=== PATIENT | female | born 1970 | race Caucasian/White ===

== ENCOUNTER 2018-06-24 19:16 | Observation (INO) | payer BC, SELFPAY ==
[2018-06-24] VITALS (10 sets, daily range): BP systolic 114–158; BP diastolic 67–91; PULSE 70–87; RESP 16–20; TEMP 36.6; O2SAT 95–98; BMI 37.0; BMI 37.7
--- NOTE | 2018-06-24 19:52 | ED.RN ---
RN CALLED FOR EKG, NO OLD EKGS IN MUSE
--- NOTE | 2018-06-24 19:55 | RAD_ITS ---
STUDY: X-RAY CHEST REASON FOR EXAM: Female, 48 years old. Chest pain. TECHNIQUE: PA and lateral views of the chest. COMPARISON: 08 February 2017 FINDINGS: The lungs are clear and expanded. There is no demonstrated pleural abnormality. Normal size heart. Normal mediastinum and juan. Normal visualized pulmonary arteries. Normal visualized aortic arch and descending thoracic aorta. Normal visualized thoracic spine. Normal visualized ribs, clavicles, and shoulders. There is no demonstrated abnormality of the visualized soft tissue structures of the upper abdomen. RAD/Chest PA and Lateral IMPRESSION: No evidence of acute cardiopulmonary process. Electronically Signed: Tyrell Crump DO at 20:08 EST , Service support ,
[2018-06-24 20:08] LABS: Absolute Neutrophil Count 9.2 X10^3/uL (2.0-7.7); Basophil# 0.03 X10^3/uL; Basophil% 0.2 % (0-1); Eosinophil# 0.27 X10^3/uL; Eosinophils% 2.1 % (0-5); Hematocrit 43.4 % (37-47); Hemoglobin 14.4 g/dl (12.0-15.0); Lymphocyte % 18.7 % (19-41); Mean Corp Hgb Conc 33.2 g/gl (32-36); Mean Corpuscular Hgb 30.4 pg (27.0-32.0); Mean Corpuscular Volume 91.6 fL (81-99); Mean Platelet Vol. 10.2 fl (6.2-12.0); Monocyte# 0.89 X10^3/uL; Monocyte% 6.9 % (0-10); Neutrophil # 9.21 X10^3/uL (2.7-7.7); Neutrophil % 71.9 % (47-70); Platelet Count 244 K/mm3 (150-450); RBC Distribution Width CV 13.5 % (11.6-14.6); RBC Distribution Width SD 45.1 fl (35.1-43.9); Red Blood Count 4.74 M/mm3 (4.2-5.4); White Blood Count 12.8 K/mm3 (4.4-11.0)
[2018-06-24 20:09] LABS: POSITIVE COUNT NO; POSITIVE DIFFERENTIAL NO; POSITIVE MORPHOLOGY NO
[2018-06-24 20:23] LABS: Anion Gap 8 (5-15); BUN 8 mg/dL (7-18); BUN/Creat Ratio 8.7 RATIO (10-20); Calcium,Total 8.9 mg/dL (8.5-10.1); Chloride 104 mmol/L (98-107); Creatinine, Serum 0.92 mg/dL (0.55-1.02); EST Glomerular Filtration Rate 69 mL/min (>60); Est Glom Filt Rate - Afr Amer 84 mL/min (>60); Estimated Creatinine Clearance 61.86 ml/min; Glucose 105 mg/dL (74-106); Potassium 3.6 mmol/L (3.5-5.1); Sodium Level 138 mmol/L (136-145)
--- NOTE | 2018-06-24 21:05 | EKG12_ITS ---
Test Reason : CP Blood Pressure : / mmHG Vent. Rate : 087 BPM Atrial Rate : 087 BPM P-R Int : 140 ms QRS Dur : 078 ms QT Int : 352 ms P-R-T Axes : 065 053 064 degrees QTc Int : 423 ms Normal sinus rhythm Low voltage QRS Borderline ECG Confirmed by YANCY ESTRADA MD ([id number]), metropolitan editor ALEC MALIK ([id number] on 06/28/2018 11:37:26 AM Referred By: AMY Confirmed By:YANCY ESTRADA MD
[2018-06-24] MEDS: Aspirin 81 MG TAB.CHEW 324 MG PO (21:32)
--- NOTE | 2018-06-24 22:21 | ED.VISSUMM ---
- ER Visit Summary Date of Service: 06/24/18 Chief Complaint: Chest pain History of Present Illness: The patient is a 48 F persistent chest pressure since last evening 7 PM states elephant sitting on her chest. States pain goes to her back. Dull ache with intermittent sharpness. Nausea. No dyspnea or diaphoresis. No stress test in the past. Baby aspirin taken last night. History anxiety, states always has stress however not more than normal. Tobacco history and family history in her father with an GA at age of 45 grandmother at 42. No PE risk factors. No previous similar symptoms in the past. Physical Examination: General: Alert and oriented ?3, uncomfortable HEENT: Normocephalic, atraumatic. Moist mucosa membranes Neck: supple, nontender. Cardiovascular: Regular rate and rhythm, no murmurs Respiratory: Normal breath sounds, symmetric, no distress Abdomen: Soft, nontender, nondistended Extremities: Nontender, no edema, pulses intact ?4 Neuro: no focal neurological deficits. Test Results: EKG: Sinus rate of 87, no ST or T wave changes. Chest x-ray negative. Hemoglobin 14, present 3.6 creatinine 0.92. Troponin less than 0.015. Emergency Department Course and Treatment: Patient with labs obtained in triage workup all negative. She had persistent pressure aspirin nitroglycerin sublingual x3 pain significant improved with only mild back symptoms Nitropaste was placed. Heart scores of 4. JOSS score is a 2. Primary concern family history with MIs in their 40s. No stress test in the past. Discussed with hospitalist for admission. Treatment Plan: [] Disposition: Admission Impression: Acute chest pain This note was generated with [employer] dictation software. It may contain incorrect words, spelling, and punctuation that were not noted in review of the chart prior to signing ED Disposition - Plan for ED Patient: Disposition: Acute Care Hospital [facility] Diagnosis: Acute chest pain Referrals: Byron Gonzalez DO [Primary Care Provider] -
--- NOTE | 2018-06-24 22:22 | HP.PCM_ITS ---
Problem List (1) Acute chest pain Status: Acute History of Present Illness Date of Admission: 06/24/18 Chief Complaint: chest pain The patient is a 48 year old F with a significant history of depression, anxiety and osteoarthritis of her hands who presented with 1 day history of excruciating continuous substernal chest pain that radiates to her back. She reported that her pain started while driving which really scared her. She describes her pain as heaviness and as an elephant sitting on her chest. Also she describes the pain as tightness, aching and vice-like. Her chest pain increased with activity. At the emergency department he received 3 tablets nitroglycerin to help with her chest pain. Also she was given 4 baby aspirins. Associated with her symptoms is a feeling of being about to pass out; shortness of breath and diaphoresis. Past Medical History Allergies droperidol Adverse Reaction (Verified 06/24/18 19:19) Angioedema Home Medications: Ambulatory Orders Medication Instructions Recorded ALPRAZolam [Xanax] 0.25 mg PO BID 02/08/17 Meloxicam 15 mg PO DAILY 02/08/17 buPROPion XL [Wellbutrin Xl] 300 mg PO DAILY 02/08/17 Bupropion HCl [Bupropion Xl] 75 mg PO 06/24/18 Smoking Status: Current every day smoker Review of Systems Constitutional: Denies: Chills, Fever, Weight Change HEENT: Denies: Head Aches, Sinus Congestion, Sinus Drainage Cardiovascular: Reports: Chest Pain. Denies: Palpitations Respiratory: Reports: Shortness of Breath. Denies: Cough Gastrointestinal: Reports: Nausea. Denies: Abdominal Pain, Vomiting Genitourinary: Denies: Dysuria Musculoskeletal: Denies: Joint Pain, Joint Tenderness Skin: Denies: Rash, Wounds Neurological: Denies: Numbness, Tingling, Focal weakness Psychiatric: Reports: Anxiety, Depression. Denies: Homicidal Ideations, Suicidal Ideations Hematologic/ Lymphatic: Denies: Easy Bruising, Easy Bleeding VTE Information - Inpt Only VTE Present on Admission: No VTE Mechan Device Prophylaxis: None VTE Pharm Prophylaxis ordered?: Yes Patient Problems: Active and Suspected Problems Acute chest pain (Acute) - Physical Exam General: Alert, Oriented x3, Cooperative HEENT: Atraumatic, PERRLA, EOMI, Normocephalic Neck: Supple, No JVD, Negative Carotid Bruits Lungs: Clear to auscultation, Normal air movement Cardiovascular: Regular rate, No murmurs Abdomen: Bowel Sounds Present, Soft, Non Tender Extremities: No edema, Capillary Refill Less than 3 Seconds Skin: No rashes, No breakdown Musculoskeletal: No Tenderness to Palpation of Joints or Extremities Neurological: Neuro grossly intact Psych/Mental Status: Normal Affect, Appropriate Vital Signs Temp Pulse Resp BP Pulse Ox 97.9 F 72 18 122/67 H 95 06/24/18 19:17 06/24/18 22:09 06/24/18 22:08 06/24/18 22:09 06/24/18 22:08 Oxygen Delivery Method Room Air Weight: 94.9 kg Body Mass Index (BMI) 37.0 Laboratory Tests Past 24 Hrs 06/24/18 06/24/18 19:30 19:30 WBC 12.8 H RBC 4.74 Hgb 14.4 Hct 43.4 MCV 91.6 MCH 30.4 MCHC 33.2 RDW 13.5 RDW Differential 45.1 H Plt Count 244 MPV 10.2 Immature Gran % (Auto) 0.200 Neut % (Auto) 71.9 H Lymph % (Auto) 18.7 L [place] % (Auto) 6.9 Eos % (Auto) 2.1 Baso % (Auto) 0.2 Absolute Neuts (auto) 9.2 H Absolute Lymphs (auto) 2.40 Total Counted Not Reportable Sodium 138 Potassium 3.6 Chloride 104 Carbon Dioxide 26.0 Anion Gap 8 BUN 8 Creatinine 0.92 Estim Creat Clear Calc 61.86 Est GFR (MDRD) Af Amer 84 Est GFR (MDRD) Non-Af 69 BUN/Creatinine Ratio 8.7 L Glucose 105 Calcium 8.9 Troponin I < 0.015 Assessment/Plan All Active Problems Acute chest pain (Acute) The patient is a 48 year old F with a significant history of depression, anxiety and osteoarthritis of her hands who presented with 1 day history of excruciating continuous substernal chest pain that radiates to her back. Chest pain Admit to a monitored bed on PCU CXR independently reviewed confirms no acute cardiopulmonary process. EKG independently reviewed confirms no ST or T wave abnormalities. ASA 81 mg p.o. daily Treadmill stress test in the AM if the cardiac enzymes are negative. NPO Morphine as needed for pain We will hold off nitroglycerin at this time because of possible stress test in a.m. We will check lipid panel. High intensity statin x1 dose ordered. PT and INR ordered. Serial cardiac enzymes Stat EKG as needed for chest pain We will hold off her Mobic that she took for arthritis. Tylenol ordered. Different diagnosis include musculoskeletal source of chest pain or anxiety disorder. Anxiety: Xanax and ibuprofen ordered DVT prophylaxis: Subcutaneous heparin ordered. Code Visit OBSV E&M: 23876 Initial observation care L3
[2018-06-24] MEDS: Nitroglycerin Oint 1 INCH PACKET TRANSDERM. (22:52)
--- NOTE | 2018-06-24 23:14 | EKG12_ITS ---
Test Reason : ADMIT Blood Pressure : / mmHG Vent. Rate : 068 BPM Atrial Rate : 068 BPM P-R Int : 146 ms QRS Dur : 082 ms QT Int : 398 ms P-R-T Axes : 064 024 058 degrees QTc Int : 423 ms Normal sinus rhythm Normal ECG No previous ECGs available Confirmed by NATALIE MENDOZA, YANCY ([id number]), senior editor ALEC MALIK ([id number]) on 07/01/2018 11:49:54 AM Referred By: SKYLAR Confirmed By:YANCY ESTRADA MD
[2018-06-25] VITALS (7 sets, daily range): BP systolic 114–120; BP diastolic 69–80; PULSE 67–82; RESP 16–18; TEMP 36.6–36.8; O2SAT 95–98
[2018-06-25] MEDS: Atorvastatin Calcium 80 MG Tablet PO (00:02)
[2018-06-25 02:57] LABS: Basophil# 0.02 X10^3/uL; Basophil% 0.2 % (0-1); Eosinophil# 0.22 X10^3/uL; Eosinophils% 1.9 % (0-5); Hematocrit 41.1 % (37-47); Hemoglobin 13.8 g/dl (12.0-15.0); Lymphocyte % 21.4 % (19-41); Mean Corp Hgb Conc 33.6 g/gl (32-36); Mean Corpuscular Hgb 30.6 pg (27.0-32.0); Mean Corpuscular Volume 91.1 fL (81-99); Mean Platelet Vol. 9.9 fl (6.2-12.0); Monocyte# 0.92 X10^3/uL; Monocyte% 7.9 % (0-10); Neutrophil # 8.02 X10^3/uL (2.7-7.7); Neutrophil % 68.4 % (47-70); Platelet Count 215 K/mm3 (150-450); RBC Distribution Width CV 13.5 % (11.6-14.6); RBC Distribution Width SD 44.4 fl (35.1-43.9); Red Blood Count 4.51 M/mm3 (4.2-5.4); White Blood Count 11.7 K/mm3 (4.4-11.0)
[2018-06-25 02:58] LABS: POSITIVE COUNT NO; POSITIVE DIFFERENTIAL NO; POSITIVE MORPHOLOGY NO
[2018-06-25 03:02] LABS: Prothrombin Time (Protime)PT. 13.6 SECONDS (11.7-14.9)
[2018-06-25 03:12] LABS: Anion Gap 8 (5-15); BUN 6 mg/dL (7-18); BUN/Creat Ratio 8.1 RATIO (10-20); Calcium,Total 8.3 mg/dL (8.5-10.1); Chloride 108 mmol/L (98-107); Cholesterol 227 mg/dL (200); Creatinine, Serum 0.74 mg/dL (0.55-1.02); EST Glomerular Filtration Rate 88 mL/min (>60); Est Glom Filt Rate - Afr Amer 107 mL/min (>60); Estimated Creatinine Clearance 76.91 ml/min; Glucose 97 mg/dL (74-106); High Density Lipoprotein 36 mg/dL; Potassium 3.8 mmol/L (3.5-5.1); Sodium Level 140 mmol/L (136-145); Triglycerides 145 mg/dL; Very Low Density Lipoprotein 29 mg/dL (5-40)
[2018-06-25] MEDS: Aspirin E.C. 81 MG Tablet PO (05:48)
[2018-06-25] MEDS: buPROPion (XL) 300 MG TABLET.XL PO (08:27)
--- NOTE | 2018-06-25 09:07 | STRESSREP ---
Stress Test Report Exercise stress test. 48-year-old lady with a history of atypical chest pain. Medications Xanax Ecotrin heparin. Resting EKG demonstrates normal sinus rhythm with a rate of 68 bpm normal intervals are noted resting blood pressure is 120/84 mmHg. The patient exercised according to regular Hardy protocol for total duration of 6 minutes the maximum heart rate attained was 162 bpm which was 94% of maximum predicted heart rate the maximum workload was 7 metabolic equivalents. At rest there were no ST or T wave changes noted suggest ischemia at peak exercise upsloping ST changes only were noted with normally the criteria for ischemia. Resting blood pressure 120/84 with a peak blood pressure 190/80 mmHg rate pressure product was 30,400. Myocardial perfusion protocol. 14.5 mCi of technetium 99m sestamibi was injected at rest. Patient exercised for 6 minutes attaining 94% of maximum predicted heart rate at peak exercise 44.6 mCi of technetium 99m sestamibi was injected stress images were obtained stress and rest images were reconstructed and compared in the short axis vertical and horizontal long axis. Gated images were also obtained next Perfusion SPECT analysis: Review of the stress images demonstrate normal uptake of tracer noted in all areas of myocardium. The resting images similarly demonstrate normal uptake of tracer noted in all areas of the myocardium. No areas of reversibility are noted suggest ischemia. No previous infarct is noted. Gated SPECT analysis: The gated ejection fraction is noted to be 70%. Conclusion: Normal exercise myocardial perfusion stress test. Preserved ejection fraction.
--- NOTE | 2018-06-25 10:10 | DCINST_ITS ---
- Discharge Diagnoses Current Active Problems: Current Active and Chronic Problems Acute chest pain (Acute) You will use the following diet at home:: Regular Your food should be the consistency of: Regular Discharge Activity: Return to Normal Activity Weight Bearing Status: Full weight bearing Call your doctor if you observe: Fever of 101 or Higher, Shortness of breath, Dizziness, Fainting spells, Chest pain, Increased palpitations (irregular heartbeat), Uncontrolled pain Allergies/Adverse Reactions: Allergies droperidol Adverse Reaction (Verified 06/24/18 19:19) Angioedema Medications to take at Discharge ALPRAZolam [Xanax] 0.25 mg PO BID 02/08/17 Meloxicam 15 mg PO DAILY 02/08/17 buPROPion XL [Wellbutrin Xl] 300 mg PO DAILY 02/08/17 Bupropion HCl [Bupropion Xl] 75 mg PO 06/24/18 Primary Care Physician: Byron Gonzalez DO [Primary Care Provider] - Please follow up with your Primary Care Physician in: 2-4 weeks. Test Results: Test results from this visit will be discussed in further detail at your follow- up appointment, if applicable.
--- NOTE | 2018-06-25 15:56 | PCM.DC.SUM ---
Discharge Date and Diagnosis Date of Admission: 06/24/18 Date of Discharge: 06/25/18 - Primary Discharge Diagnosis Atypical chest pain, ACS ruled out, attributed to probably stress and anxiety. Hospital Course and Treatment Imaging Results: Clinical Impression(s) from Imaging Studies Chest X-Ray 06/24/18 19:55 IMPRESSION: No evidence of acute cardiopulmonary process. Electronically Signed: Tyrell CrumpDO at 20:08 EST , Service support , Operations: None Procedures: EKG, Stress test Summary of Care Provided: Patient seen and examined on the day of discharge and appeared to be stable to be discharged home. She denied any more chest pain. Denied shortness of breath, palpitation, dizziness or lightheadedness. Her vital signs were stable. Patient was tearful because she is under large amount of stress at work. The patient is a 48 year old F admitted because of chest pain for evaluation. She has no significant factors for CAD. Her initial EKG showed no acute ischemic changes. Troponin was negative x3. Chest x-ray showed no acute findings. Her routine blood work was unremarkable. Lipid profile revealed cholesterol of 227, LDL cholesterol of 162 and HDL cholesterol of 36. She underwent nuclear stress test that showed no evidence of stress-induced myocardial ischemia with preserved ejection fraction. ACS ruled out. Her symptoms attributed to stress and anxiety, patient was tearful about her stress at work. Recommended to monitor his diet because of high cholesterol and there was no indication to start patient on statin at this time. Recommended to continue with diet control for 6 months and then repeat lipid profile as outpatient. Patient discharged home in a stable medical condition, discharged on same medication that she has been taking without changes, recommended follow-up with PCP in 2-4 weeks. - Physical Exam General: Alert, Oriented x3, Cooperative, No apparent distress HEENT: Atraumatic, PERRLA, EOMI, Normocephalic Oral: Moist Mucosa, No Gingival or Mucosal Lesions/ Ulcerations Neck: Supple, No JVD, Negative Carotid Bruits, Trachea Midline, Thyroid Normal Size and Texture Lungs: Clear to auscultation, Normal air movement, No rhonchi, No wheeze, No rales Cardiovascular: Regular rate, Regular Rhythm, Normal S1, Normal S2, PMI Normal Abdomen: Bowel Sounds Present, Soft, Non Tender, Non-Distended, No Hepato-splenomegaly Extremities: No clubbing, No cyanosis, No edema Skin: No rashes, No breakdown Lymphatic: No Cervical, Supraclavicular, or Inguinal Adenopathy Neurological: Cranial nerves II-XII grossly intact, Neuro grossly intact Psych/Mental Status: Normal Affect, Appropriate, - - Tearful. Vital Signs Temp Pulse Resp BP Pulse Ox 97.9 F 70 16 117/80 98 06/25/18 11:20 06/25/18 11:20 06/25/18 11:20 06/25/18 11:20 06/25/18 11:20 Oxygen Delivery Method Room Air Weight: 212 lb 15.465 oz Body Mass Index (BMI) 37.7 Intake and Output for Last 24 Hours 06/23/18 06/24/18 06/25/18 23:59 23:59 23:59 Intake Total 240 / 240 Balance 240 / 240 Laboratory Tests Past 24 Hrs 06/24/18 06/24/18 06/24/18 19:30 19:30 23:45 WBC 12.8 H RBC 4.74 Hgb 14.4 Hct 43.4 MCV 91.6 MCH 30.4 MCHC 33.2 RDW 13.5 RDW Differential 45.1 H Plt Count 244 MPV 10.2 Immature Gran % (Auto) 0.200 Neut % (Auto) 71.9 H Lymph % (Auto) 18.7 L [place] % (Auto) 6.9 Eos % (Auto) 2.1 Baso % (Auto) 0.2 Absolute Neuts (auto) 9.2 H Absolute Lymphs (auto) 2.40 Total Counted Not Reportable PT INR APTT Sodium 138 Potassium 3.6 Chloride 104 Carbon Dioxide 26.0 Anion Gap 8 BUN 8 Creatinine 0.92 Estim Creat Clear Calc 61.86 Est GFR (MDRD) Af Amer 84 Est GFR (MDRD) Non-Af 69 BUN/Creatinine Ratio 8.7 L Glucose 105 Calcium 8.9 Troponin I < 0.015 < 0.015 Triglycerides Cholesterol LDL Cholesterol VLDL Cholesterol HDL Cholesterol 06/25/18 06/25/18 06/25/18 02:40 02:40 02:40 WBC RBC Hgb Hct MCV MCH MCHC RDW RDW Differential Plt Count MPV Immature Gran % (Auto) Neut % (Auto) Lymph % (Auto) [place] % (Auto) Eos % (Auto) Baso % (Auto) Absolute Neuts (auto) Absolute Lymphs (auto) Total Counted PT 13.6 INR 1.0 APTT 32.0 Sodium 140 Potassium 3.8 Chloride 108 H Carbon Dioxide 24.0 Anion Gap 8 BUN 6 L Creatinine 0.74 Estim Creat Clear Calc 76.91 Est GFR (MDRD) Af Amer 107 Est GFR (MDRD) Non-Af 88 BUN/Creatinine Ratio 8.1 L Glucose 97 Calcium 8.3 L Troponin I < 0.015 Triglycerides 145 Cholesterol 227 H LDL Cholesterol 162 H VLDL Cholesterol 29 HDL Cholesterol 36 L 06/25/18 02:40 WBC 11.7 H RBC 4.51 Hgb 13.8 Hct 41.1 MCV 91.1 MCH 30.6 MCHC 33.6 RDW 13.5 RDW Differential 44.4 H Plt Count 215 MPV 9.9 Immature Gran % (Auto) 0.200 Neut % (Auto) 68.4 Lymph % (Auto) 21.4 [place] % (Auto) 7.9 Eos % (Auto) 1.9 Baso % (Auto) 0.2 Absolute Neuts (auto) 8.0 H Absolute Lymphs (auto) 2.50 Total Counted Not Reportable PT INR APTT Sodium Potassium Chloride Carbon Dioxide Anion Gap BUN Creatinine Estim Creat Clear Calc Est GFR (MDRD) Af Amer Est GFR (MDRD) Non-Af BUN/Creatinine Ratio Glucose Calcium Troponin I Triglycerides Cholesterol LDL Cholesterol VLDL Cholesterol HDL Cholesterol Discharge Activity: Return to Normal Activity Weight Bearing Status: Full weight bearing Call your doctor if you observe: Fever of 101 or Higher, Shortness of breath, Dizziness, Fainting spells, Chest pain, Increased palpitations (irregular heartbeat), Uncontrolled pain Home Medications: Medications to take at Discharge ALPRAZolam [Xanax] 0.25 mg PO BID 02/08/17 Meloxicam 15 mg PO DAILY 02/08/17 buPROPion XL [Wellbutrin Xl] 300 mg PO DAILY 02/08/17 Bupropion HCl [Bupropion Xl] 75 mg PO 06/24/18 Primary Care Physician: Byron Gonzalez DO [Primary Care Provider] - Please follow up with your Primary Care Physician in: 2-4 weeks. Minutes spent on discharge:: 25 Patient Condition:: Stable Medical Necessity - Tobacco Use Smoking Status: Current every day smoker Meaningful Use Info Meaningful Use Diagnoses (Choose all that apply): None applicable Code Visit OBSV E&M: 79943 Observation care discharge
== END 2018-06-25 10:10 | disposition home or self-care (01) ==
LOC: ED 22:27 → PCU 23:11
PROVIDERS: Admitting Provider Hospitalist; Emergency Provider Emergency Medicine; Family Provider Student in an Organized Health Care Education/Training Program; PCP Student in an Organized Health Care Education/Training Program; Visit Provider Hospitalist
DX: R07.89 Other chest pain (principal); F41.9 Anxiety disorder, unspecified; F32.9 Major depressive disorder, single episode, unspecified; M19.90 Unspecified osteoarthritis, unspecified site; F17.200 Nicotine dependence, unspecified, uncomplicated; Z79.899 Other long term (current) drug therapy; Z82.49 Family history of ischemic heart disease and other diseases of the circulatory system
CPT/HCPCS: 36415; 71046; 78452; 80048; 80061; 84484; 85025; 85610; 85730; 93005; 93017; 99218; 99284; A9500; A4216; G0378